=== PATIENT | female | born 1985 | race Caucasian/White ===

== ENCOUNTER 2019-11-13 08:06 | Inpatient (IN) | payer BC ==
[2019-11-13] MEDS ORDERED: Ketorolac Tromethamine 30 MG/ML VIAL ONE (08:12)
[2019-11-13] MEDS ORDERED: Fentanyl 100 MCG/2 ML VIAL ONE ×3 (08:12→14:54)
--- NOTE | 2019-11-13 08:49 | RAD ---
XR Knee Lt 4 View STANDARD: 11/13/2019 8:15 AM CLINICAL INDICATION: Fall with left knee pain COMPARISON: None. FINDINGS: Bones: r there is a comminuted, transverse oriented fracture involving the patella with distraction of the fracture approximately 3 cm. No additional acute fracture is evident. Joints: No joint capsular distention.. Soft Tissue: There is soft tissue swelling surrounding the fracture site.. IMPRESSION: Comminuted, distracted patellar fracture.
--- NOTE | 2019-11-13 09:41 | RAD ---
Exam: Chest one view HISTORY:Preoperative exam. Fractured patella Comparison: None FINDINGS: Cardiac silhouette: Normal Aorta: Unremarkable Pulmonary vessels: Normal Costophrenic angles: Clear LUNGS: No masses or consolidation. Pneumothorax: None Osseous abnormalities: None IMPRESSION: No acute cardiopulmonary process.
[2019-11-13] MEDS ORDERED: Dextrose 5% in Water 1,000 ML IV PRN (09:53)
[2019-11-13] MEDS ORDERED: Dextrose 50% Abboject 50 ML SYRINGE SLOW IVP PRN (09:53)
[2019-11-13] MEDS ORDERED: Ondansetron PF 4 MG/2 ML Vial IVP PRN (09:53)
[2019-11-13] MEDS ORDERED: traMADol HCl 50 MG TAB PO PRN ×2 (09:59)
[2019-11-13] MEDS ORDERED: Cyclobenzaprine 10 MG TAB PO PRN (09:59)
[2019-11-13] MEDS ORDERED: Sodium Chloride 0.9% 1,000 ML IV SCH (10:00)
[2019-11-13 10:01] LABS: #Basophils 0.1 thou/uL (0.0-0.2); #Eosinphils 0.1 thou/uL (0.0-0.7); #Lymphocytes 1.2 thou/uL (1.20-3.40); #Monocytes 0.6 thou/uL (0.11-0.59); #Neutrophils 12.3 thou/uL (1.40-6.50); %Basophils 0.5 % (0.0-1.0); %Eosinophils 0.4 % (0.0-10.0); %Lymphocytes 8.5 % (21.0-51.0); %Monocytes 4.1 % (0.0-10.0); %Neutrophils 86.5 % (42.0-75.0); Hemoglobin 14.8 g/dL (12.0-16.0); Mean Corpuscular HGB CONC 32.9 g/dL (32.0-36.0); Mean Corpuscular Hemoglobin 28.8 pg (27.0-31.0); Mean Corpuscular Volume 87.6 fL (78.0-98.0); Mean Platelet Volume 6.7 fL (7.4-10.4); Platelet Count 432 thou/uL (130-400); RBC Distribution Width 11.8 % (11.5-14.5); Red Blood Cell (RBC) Count 5.14 mill/uL (4.20-5.40); White Blood Cell (WBC) Count 14.2 thou/uL (4.8-10.8)
[2019-11-13 10:09] LABS: BHCG - Serum Negative (NEGATIVE); PTT 27.2 sec (22.9-36.1); Pregs Control Background? CLEAR/WHITE (CLR/WHITE); Pregs Control Bar Appear? YES (CONTROL BAR); Prothrombin Time 13.4 sec (12.0-14.7)
--- NOTE | 2019-11-13 10:14 | CON ---
DATE OF CONSULTATION: 11/13/2019 This is Dede Wisdom PA-C dictating a report for Maynor Montelongo MD. REQUESTING PHYSICIAN: Lincoln Sotelo MD CONSULTING PHYSICIAN: Maynor Montelongo MD REASON FOR CONSULTATION: Left knee patellar fracture. HISTORY OF PRESENT ILLNESS: This is a 34-year-old female, who slipped and fell while running this morning. She states that she slipped on some mud, landing onto her left knee. She presented to our facility, where workup revealed a displaced patellar fracture. We have been consulted for this reason. Currently at bedside, the patient denies any other injuries. She denies any numbness or tingling. States she has never had any knee problems or orthopedic surgeries. PAST MEDICAL HISTORY: Significant for seasonal allergies and anxiety. PAST SURGICAL HISTORY: [place] teeth removal. 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 She does drink socially. Denies any tobacco or illicit drug use. FAMILY HISTORY: Reviewed and noncontributory. REVIEW OF SYSTEMS: Ten-point review of systems is conducted and otherwise negative except for stated above. PHYSICAL EXAMINATION: VITAL SIGNS: Shows current vital signs including blood pressure of 127/76, pulse of 87, respiratory rate of 16, temperature of 99.3, and O2 saturation of 99% on room air. GENERAL: The patient is awake and alert. She is in no apparent distress. She is lying supine on the stretcher in the ER at this time. No family is present. She is cooperative with exam today. HEENT: Head is normocephalic and atraumatic. NECK: Supple. Trachea midline. Breathing is nonlabored. EXTREMITIES: The left lower extremity is noted to have a superficial abrasion over the patella. There is no active bleeding. She is able to wiggle her toes. Negative log roll. She is unable to flex or extend at the knee. Other 3 extremities were evaluated and no acute deformities or injuries are noted. RADIOGRAPHIC IMAGING: Reviewed today including four views of the left knee demonstrates a transverse patellar fracture with comminution of several inferior pieces. There is displacement of the superior fracture portion superiorly. ASSESSMENT: Left patellar fracture with displacement and comminution. PLAN: At this time, case was reviewed with Dr. Montelongo. The patient has been n.p.o. since last night. We will plan for surgical intervention this afternoon in order to restore anatomic alignment and promote function. Risks, benefits, and alternatives were discussed with the patient at length today. She does verbalize understanding and is amenable to the plan of care. She will remain n.p.o. She will be admitted to the Trauma Services. We will plan for likely discharge home tomorrow. All questions have been answered at this time. Job ID: [id number]
[2019-11-13 10:28] LABS: ALT (SGPT) 23 U/L (8-55); AST (SGOT) 23 U/L (5-34); Albumin 4.3 g/dL (3.5-5.0); Alkaline Phosphatase 68 U/L (40-110); Anion Gap 15 mmol/L (10-20); BUN (Urea Nitrogen) 10 mg/dL (7.0-18.7); Bilirubin, Total 0.4 mg/dL (0.2-1.2); Calc. Creatinine Clearance 0 mL/min (70-130); Calcium 9.3 mg/dL (7.8-10.44); Carbon Dioxide 22 mmol/L (22-29); Chloride 107 mmol/L (98-107); Estimated GFR-MDRD 90; Globulin 3.3 g/dL (2.4-3.5); Glucose 106 mg/dL (70-105); Protein, Total 7.6 g/dL (6.0-8.3); Sodium 140 mmol/L (136-145)
[2019-11-13] MEDS ORDERED: Midazolam HCl 2 mg/2 ml Vial ONE (13:48)
[2019-11-13] MEDS ORDERED: Ondansetron PF 4 MG/2 ML Vial ONE (14:49)
[2019-11-13] MEDS ORDERED: Dexamethasone 20 MG/5 ML VIAL ONE (14:49)
[2019-11-13] MEDS ORDERED: PROPOFOL 200 MG/20 ML VIAL ONE (14:49)
[2019-11-13] MEDS ORDERED: Lidocaine 1% PF 5 ML VIAL ONE (14:49)
[2019-11-13] MEDS ORDERED: Bupivacaine HCl 0.5%/Epinephrine 1:200,000/PF 30 ml Vial ONE (14:51)
--- NOTE | 2019-11-13 15:05 | HP ---
Dr. Mcclellan has personally seen and evaluated the patient. HISTORY OF PRESENT ILLNESS: Ms. Nguyễn is a 34-year-old female with a past medical history of pelvic pain; dysmenorrhea, treated with OCPs; and seasonal allergies; coming into the emergency department via EMS after slipping on a puddle this morning approximately 7:30 a.m. and falling onto her left knee. The patient was walking, slipped in mud with her right foot going forward and her left knee going straight down to the concrete. She had immediate severe pain and also noticed her knee to be deformed looking in appearance. The patient denies any audible or felt pop or crack at the time of the fall. She states that after this incident , she was unable to walk or bend that knee. She called the EMS, who then transferred her to [facility] ER. The patient denies any other injuries during this accident and no other pain. REVIEW OF SYSTEMS: GENERAL: The patient denies fevers, chills. HEENT: The patient denies headache, vision changes, or sore throat. NECK: The patient denies neck pain. LUNGS: The patient denies cough or shortness of breath. CARDIAC: The patient denies any chest pain or recent lower extremity edema. ABDOMEN: The patient denies abdominal pain, nausea, vomiting, or diarrhea. MUSCULOSKELETAL: Admits to left knee pain, see HPI. Denies any other joint pain or back pain. SKIN: Denies rash. NEUROLOGIC: Admits to lightheadedness after given some pain medication. PAST MEDICAL HISTORY: Seasonal allergies and dysmenorrhea. MEDICATIONS: 1. Oral contraceptive pills. 2. Chelsey. 3. Zyrtec. PAST SURGICAL HISTORY: [place] teeth extraction in 2011. ALLERGIES: 1. AZITHROMYCIN, CAUSES RASH AND ITCHING. 2. PERCOCET, CAUSES RASH AND ITCHING. 3. PENICILLIN, CAUSES RASH, ITCHING, AND SHORTNESS OF BREATH. 4. SULFA MEDICATIONS CAUSE RASH AND ITCHING. SOCIAL HISTORY: The patient denies any tobacco use or drug use. The patient admits to occasional alcohol consumption socially. FAMILY HISTORY: Maternal grandfather of lung cancer in his 70s, also had congestive heart failure. Maternal and paternal grandmother had breast cancer. PHYSICAL EXAMINATION: VITAL SIGNS: temp: 98.3, HR 112, RR 18, O2 sat 98% on RA, BP 122/81, wt: 83.9 kg GENERAL: In no acute distress. Alert and oriented x3. HEENT: Head; normocephalic, atraumatic. Eyes; PERRLA and extraocular movements intact. NECK: Trachea midline. Full range of motion. LUNGS: Clear to auscultation bilaterally. No wheezing, rales, or rhonchi. No respiratory distress. CARDIAC: Regular rate and rhythm. No murmurs, gallops, or rubs. ABDOMEN: Soft, nontender to palpation in all quadrants. Bowel sounds present. EXTREMITIES: No pedal or lower extremity edema. Pulses 2+ at dorsal pedis bilaterally and radius bilaterally. Neurovascularly intact in all 4 extremities. MUSCULOSKELETAL: Tenderness over left patella. Range of motion in L knee limited due to pain. Special tests to the knee not performed secondary to pain intolerance. Abrasion with ecchymosis present over the anterior aspect of the L knee patella with the effusion. NEUROLOGIC: Cranial nerves 2 through 12 intact. Strength 5/5 in all 4 extremities. No altered sensation in all 4 extremities. Alert and oriented x3. PSYCHIATRIC: Mood appropriate. Memory intact. DIAGNOSTIC STUDIES: Left knee x-ray, comminuted transverse oriented fracture involving the patella with distraction of the fracture, approximately 3 cm. No additional acute fracture is evident. No joint capsular distention. There is soft tissue swelling surrounding the fracture site. Chest x-ray, no acute cardiopulmonary process. LABORATORY DATA: CBC; white blood cell count 14.2, hemoglobin 14.8, hematocrit 45.1, platelets 432, neutrophil percent 86.5. Coag studies normal. PT 13.4, INR 1.0, aPTT 27.2. Chemistry within normal limits. Sodium 140, potassium 4.0, creatinine 0.75, AST 23, and ALT 23. test negative. ASSESSMENT: 1. Ground level fall. 2. Comminuted distracted patellar fracture on the left knee. 3. Leukocytosis. PLAN: Orthopedic Surgery, Dr. Montelongo, has been consulted who plans to take the patient for surgical intervention this afternoon. The patient's last food was last night for dinner; however, she had 2 vitamin gummies with a small amount of water to swallow Zyrtec this morning. No other p.o. intake. We will leave n.p.o. for this surgery. Physical Therapy/Occupational Therapy consulted for therapy after surgery. Planning probable discharge home tomorrow if the patient's pain is tolerable. Pain management, Tylenol 1000 mg p.o. q.6 hours, cyclobenzaprine 10 mg p.o. t.i.d. p.r.n., ibuprofen 600 mg p.o. q.8 hours, and tramadol 100 mg p.o. q.6 hours p.r.n. or tramadol 50 mg p.o. q.6 hours p.r.n. for pain. Resume regular diet after surgery, advance as tolerated. VTE prophylaxis, SCDs. Diet, n.p.o. until after surgery, resume regular diet post-surgery, advance as tolerated. Code status, full code. Pt seen and evaluated by Dr. Mcclellan, who is in agreement with above stated plan of care. Job ID: [id number] MTDD
[2019-11-13] MEDS ORDERED: Meperidine HCl/PF 25 MG/ML VIAL ONE (17:03)
[2019-11-13 18:39] VITALS: BMI 30.7
[2019-11-13] MEDS: Ibuprofen 600 MG TAB PO SCH ×2 (19:11→21:46)
[2019-11-13] MEDS: Acetaminophen 500 MG TAB PO SCH ×2 (19:11→21:46)
[2019-11-13] MEDS: Senokot S 8.6-50 MG TAB PO SCH (20:03)
--- NOTE | 2019-11-13 20:14 | RAD ---
XR Knee Lt 2 View History: Trauma Comparison: Radiograph same day Findings: Satisfactory appearance cerclage fixation and percutaneous pin placement through the patell ar fracture. Impression: Satisfactory postoperative appearance.
[2019-11-13] MEDS ORDERED: Famotidine/PF 20 mg/2ml Vial SLOW IVP SCH (21:00)
[2019-11-13] MEDS: CEFAZOLIN 2 GM in Premix Bag 1 BAG IVPB SCH (21:45)
--- NOTE | 2019-11-13 22:46 | OP ---
DATE OF PROCEDURE: 11/13/2019 PREOPERATIVE DIAGNOSIS: Grade 1 open left comminuted patella fracture. POSTOPERATIVE DIAGNOSIS: Grade 1 open left comminuted patella fracture. PROCEDURES PERFORMED: 1. Open reduction and internal fixation of left patella. 2. Irrigation debridement of left knee. ANESTHESIA: General. SPRAY MACHINE LOADER: Dede Wisdom PA-C TOURNIQUET TIME: Approximately 65 minutes at 300 mmHg. IMPLANTS: K-wires x2 as well as tension band wire. COMPLICATIONS: None. DRAINS: None. SPECIMEN: None. OUTCOME: Satisfactory. INDICATIONS FOR PROCEDURE: Patient is a 34-year-old lady, who is status post fall, landing on her left knee, sustaining a comminuted inferior pole patella fracture with wide diastasis of the superior and inferior poles as well as a small puncture wound at the anterior knee. After discussion with the patient including risks and benefits, we decided to proceed with irrigation debridement as well as open reduction and internal fixation of this fracture. Informed consent has been obtained. I believe all questions have been answered. DESCRIPTION OF PROCEDURE: Patient was brought to the operating room and a time-out performed followed by induction of general anesthesia. Patient was given 2 g of Ancef preoperatively. Following the induction of general anesthesia, she was positioned supine on the OR table and a sterile prep and drape was performed in the left lower extremity. The limb was then exsanguinated with Esmarch bandage, tourniquet inflated to 300 mmHg. A midline anterior knee incision was made. The traumatic puncture wound was explored. There was found to be no gross contamination. After the midline anterior knee incision was performed, dissection was carried down to the underlying quadriceps mechanism. There was found to be a wide diastasis of the main fracture fragments with an intact superior pole and a comminuted inferior pole. Laterally, there were some very small fragments of bone that were really void of any soft tissue attachment and as such, these were removed. The medial 2/3 of the inferior pole really was composed of two or three fragments that were still in good alignment. As such, it was opted to fix this inferior pole back to the superior pole. The wound was thoroughly irrigated with bulb syringe as well as using a Pulsavac with 3 L of normal saline, irrigated through the wound. Periosteal tissue that was interposed at the fracture site was resected back and then the fracture reduced and held in place with a bone tenaculum. Next, two K-wires were passed from the inferior pole up through the superior pole. These were checked under C-arm guidance. Once appropriately positioned, a tension band construct was wrapped around these K-wires, getting excellent compression across the fracture and a smooth articular surface. The K-wires were then cut shorter to minimize irritation subcutaneously. Next, the lateral third portion of the patella that had been excised was treated with repair of the small portion of patellar tendon to the superior pole directly. The retinaculum medially and laterally was reapproximated with 0 Vicryl in interrupted fashion followed by 2-0 Vicryl subcutaneously and erlin for the skin. Xeroform gauze, Webril, and a knee immobilizer were applied to the knee. The tourniquet was let down and patient transferred to recovery room in stable condition. There were no complications. She tolerated the procedure well. Job ID: [id number]
[2019-11-14] MEDS: Acetaminophen 500 MG TAB PO SCH ×3 (00:28→14:42)
--- NOTE | 2019-11-14 02:17 | PRG ---
DATE OF SERVICE: 11/13/2019 SUBJECTIVE: The patient is postop day #0, status post open reduction and internal fixation of left patella and irrigation and debridement of the left knee. The patient is currently resting comfortably. The patient's pain has been well controlled postop. The patient's nurse reports some mild anxiety earlier after returning from PACU. OBJECTIVE: VITAL SIGNS: Mildly tachycardic, afebrile. GENERAL: A well-appearing young female, resting comfortably. IMPRESSION: 1. Status post ground level fall. 2. Grade 1 open left comminuted patellar fracture, postop day #0, open reduction and internal fixation and irrigation and debridement. 3. Leukocytosis. PLAN: Continue supportive care and pain regimen. Physical and occupational therapy. Regular diet as tolerated. Job ID: [id number] [facility]
[2019-11-14] MEDS: CEFAZOLIN 2 GM in Premix Bag 1 BAG IVPB SCH (05:02)
[2019-11-14] MEDS: Ibuprofen 600 MG TAB PO SCH ×2 (05:02→14:42)
[2019-11-14] MEDS ORDERED: Enoxaparin Sodium 40 MG/0.4 ML SYRINGE SC SCH (09:00)
[2019-11-14] MEDS ORDERED: Loratadine 10 MG TAB PO SCH (09:00)
[2019-11-14] MEDS ORDERED: Polyethylene Glycol 3350 17 GM Packet PO SCH (09:00)
[2019-11-14] MEDS ORDERED: Non-Formulary Item 1 EACH (Fexofenadine Hcl [Allegra Allergy] 60 MG) PO SCH (09:00)
[2019-11-14] MEDS: Senokot S 8.6-50 MG TAB PO SCH (09:41)
[2019-11-14 15:34] VITALS: BP 116/74; TEMP 98.8
--- NOTE | 2019-11-15 07:39 | DIS ---
DATE OF ADMISSION: 11/13/2019 DATE OF DISCHARGE: 11/14/2019 ADMISSION DIAGNOSES: Ground level fall, left patellar fracture. DISCHARGE DIAGNOSES: Ground level fall, left patellar fracture. CONSULTING PHYSICIAN: Dr. Montelongo of Orthopedic Surgery. PROCEDURES: The patient went to the OR on November 13, 2019, and had a ORIF of the left patella, as well as I and D of the left knee. HOSPITAL COURSE: The patient is a 34-year-old female, who presented to the emergency department after a mechanical fall while jogging. The patient reported slipping and falling onto her left knee. She was found to have a left patellar fracture and was admitted to the hospital and went to the OR with Dr. Montelongo for a ORIF and washout of that knee. Postoperatively, she worked with Physical and Occupational Therapy, who recommended discharge with a walker. She was also in a knee immobilizer. At the time of discharge, the patient's pain was well controlled. She was tolerating a regular diet, voiding without difficulties, and getting around safely with a walker. DISCHARGE DISPOSITION: Home. DISCHARGE CONDITION: Satisfactory. PHYSICAL EXAMINATION: VITAL SIGNS: Temperature 97.9, pulse 100, respirations 16, oxygen saturation 100% on room air, blood pressure 122/76. GENERAL: Well-appearing young female, sitting up in bed with no signs of acute distress. PULMONARY: Equal chest rise and fall. Clear breath sounds bilaterally. No signs of acute respiratory distress. CARDIAC: Regular rate and rhythm. GASTROINTESTINAL: Abdomen is soft, nontender, nondistended. EXTREMITIES: 2+ pulses in all extremities. Gross motor and sensation intact. Left lower extremity with knee immobilizer, that is in place. Dressing beneath it is clean, dry, and intact. NEURO: GCS is 15. DISCHARGE INSTRUCTIONS: The patient was discharged home with activity as tolerated, 25% weightbearing to the left lower extremity. Regular diet. Incentive spirometry and a walker. DISCHARGE MEDICATIONS: Include, 1. Tylenol. 2. Zyrtec. 3. Flexeril. 4. Lovenox for 14 days. 5. Ibuprofen. 6. Prilosec. 7. MiraLAX. 8. Tramadol. FOLLOWUP APPOINTMENTS: The patient is to follow up with Dr. Montelongo. No followup is needed with Trauma Clinic. This is a summary of the patient's hospitalization. For full details, please see her medical record in its entirety. The [place] Prescription Monitoring Program was accessed and tramadol prescription was deemed appropriate for pain control at the time of discharge. This patient was seen and evaluated by myself and Dr. Mcclellan at the day of discharge. Job ID: [id number] MTDD
== END 2019-11-14 15:29 | disposition home or self-care (01) | DRG 517 ==
LOC: ERS 08:06 → SDC 10:28 → SURG A 18:09
PROVIDERS: ADMIT Surgery; ATTEND Surgery
PROC: 0QSF04Z Reposition Left Patella with Internal Fixation Device, Open Approach (ICD-10-PCS; principal; 2019-11-13)
DX: S82.042B Displaced comminuted fracture of left patella, initial encounter for open fracture type I or II (principal); F41.9 Anxiety disorder, unspecified; J30.2 Other seasonal allergic rhinitis; D72.829 Elevated white blood cell count, unspecified; W01.0XXA Fall on same level from slipping, tripping and stumbling without subsequent striking against object, initial encounter; Z79.899 Other long term (current) drug therapy; Z88.1 Allergy status to other antibiotic agents; Z88.0 Allergy status to penicillin; Z88.2 Allergy status to sulfonamides; Z88.8 Allergy status to other drugs, medicaments and biological substances
CPT/HCPCS: 36415; 71045; 76000; 80053; 84703; 85025; 85610; 85730; 93005; 96374; 96375; G0390; J0670; J0690; J1100; J1650; J1885; J2001; J2175; J2250; J2405; J2704; J3010; S0028

== ENCOUNTER 2019-12-03 11:49 | Observation (INO) | payer BC ==
[2019-12-03] MEDS ORDERED: PROPOFOL 200 MG/20 ML VIAL ONE (12:26)
[2019-12-03] MEDS ORDERED: Ondansetron PF 4 MG/2 ML Vial ONE (12:26)
[2019-12-03] MEDS ORDERED: Lidocaine 1% PF 5 ML VIAL ONE (12:26)
[2019-12-03] MEDS ORDERED: Dexamethasone 20 MG/5 ML VIAL ONE (12:26)
[2019-12-03] MEDS ORDERED: Fentanyl 100 MCG/2 ML VIAL ONE ×5 (14:34→16:44)
[2019-12-03] MEDS ORDERED: Levofloxacin 500 mg/D5W 100 ml Premix Bag ONE (14:40)
[2019-12-03] MEDS ORDERED: Clindamycin/D5W 900 mg/50 ml Premix Bag ONE (14:40)
[2019-12-03] MEDS ORDERED: traMADol HCl 50 MG TAB PO PRN (16:02)
[2019-12-03] MEDS ORDERED: Milk Of Magnesia 30 ML UDCUP PO PRN (16:02)
[2019-12-03] MEDS ORDERED: Fentanyl 100 MCG/2 ML VIAL SLOW IVP PRN (16:02)
[2019-12-03] MEDS ORDERED: Ondansetron PF 4 MG/2 ML Vial IV PRN (16:02)
[2019-12-03] MEDS ORDERED: Cyclobenzaprine 10 MG TAB PO PRN (16:05)
[2019-12-03] MEDS ORDERED: Communication Order-Pharmacy FS SCH (16:15)
[2019-12-03] MEDS ORDERED: HYDROmorphone 2 MG/ML VIAL SLOW IVP PRN (16:20)
[2019-12-03] MEDS ORDERED: Promethazine HCl 25 MG/ML VIAL SLOW IVP PRN (16:20)
[2019-12-03] MEDS ORDERED: Promethazine HCl 25 MG/ML VIAL IM PRN (16:20)
[2019-12-03] MEDS ORDERED: Ondansetron HCl/PF 4 MG/2 ML Vial IVP PRN (16:20)
[2019-12-03] MEDS: HYDROcodone/Acetaminophen 10/325 mg Tablet PO PRN (17:52)
--- NOTE | 2019-12-03 18:13 | OP ---
DATE OF PROCEDURE: 12/03/2019 OPERATION PERFORMED: Irrigation and debridement of left knee wound. PREOPERATIVE DIAGNOSIS: Left knee wound drainage with history of patella fracture. POSTOPERATIVE DIAGNOSIS: Left knee wound drainage with history of patella fracture. COMPLICATIONS: None. ESTIMATED BLOOD LOSS: 150 mL. IMPLANTS: None. INDICATIONS: Ms. Nguyễn is a 34-year-old female who fractured her patella approximately 3 weeks ago. She was treated with open reduction and fixation. Unfortunately, she has developed persistent wound drainage and has failed to improve with outpatient antibiotics. She has been indicated now for irrigation and debridement of the wound to hopefully eradicate infection and promote healing. Risks have been reviewed in detail. She has elected to proceed with the operation. DESCRIPTION OF PROCEDURE: Ms. Nguyễn was identified in the preoperative holding area. Her correct extremity was marked. She was carried to the operating room. She was positioned supine. General anesthesia was induced. A multidisciplinary time-out was performed. The left lower extremity was prepped and draped in sterile fashion. We began the procedure by excising the patient's wound proximally where she had drainage. We then extended the wound distally. We worked deeply down to the subcutaneous tissue and prepatellar bursal space. There was a large amount of serous and somewhat cloudy fluid. This was cultured. We thoroughly irrigated with copious lavage using Betadine and lavage. We then used a rongeur as well as a curette to debride the underlying soft tissues. We removed any previously placed suture. Again, we trimmed the skin edges. We performed a final irrigation. We then closed with a 2-0 PDS suture followed by 3-0 nylon for the skin. A sterile dressing was applied. The patient was taken to the recovery room in good condition. Job ID: [id number]
[2019-12-03 18:24] VITALS: BMI 30.7
[2019-12-03] MEDS ORDERED: Zolpidem Tartrate 5 MG TAB PO SCH (21:00)
[2019-12-03] MEDS: Ibuprofen 600 MG TAB PO SCH (21:03)
[2019-12-03] MEDS: Aspirin 81 mg Enteric Coated Tablet PO SCH (21:04)
[2019-12-03] MEDS: Clindamycin/D5W 900 MG in Premix Bag 1 BAG IVPB SCH (23:03)
[2019-12-04] MEDS: HYDROcodone/Acetaminophen 10/325 mg Tablet PO PRN ×2 (03:05→11:15)
[2019-12-04] MEDS: Clindamycin/D5W 900 MG in Premix Bag 1 BAG IVPB SCH ×2 (06:05→15:34)
[2019-12-04] MEDS: Ibuprofen 600 MG TAB PO SCH ×2 (06:06→14:08)
[2019-12-04 06:10] LABS: #Lymphocytes 1.2 thou/uL (1.20-3.40); #Monocytes 0.7 thou/uL (0.11-0.59); #Neutrophils 11.8 thou/uL (1.40-6.50); %Basophils 0.2 % (0.0-1.0); %Eosinophils 0.2 % (0.0-10.0); %Lymphocytes 8.4 % (21.0-51.0); %Monocytes 5.4 % (0.0-10.0); %Neutrophils 85.8 % (42.0-75.0); Mean Corpuscular HGB CONC 30.8 g/dL (32.0-36.0); Mean Corpuscular Volume 87.5 fL (78.0-98.0); Mean Platelet Volume 5.7 fL (7.4-10.4); Platelet Count 1008 thou/uL (130-400); RBC Distribution Width 12.2 % (11.5-14.5); Red Blood Cell (RBC) Count 3.71 mill/uL (4.20-5.40); White Blood Cell (WBC) Count 13.7 thou/uL (4.8-10.8)
[2019-12-04 07:44] LABS: Hemoglobin 10.7 g/dL (12.0-16.0); Platelet Count 1030 thou/uL (130-400)
[2019-12-04] MEDS: Aspirin 81 mg Enteric Coated Tablet PO SCH (08:34)
[2019-12-04] MEDS ORDERED: Loratadine 10 MG TAB PO SCH (09:00)
[2019-12-04] MEDS ORDERED: Non-Formulary Item 1 EACH (Fexofenadine Hcl [Allegra Allergy] 60 MG) PO SCH (09:00)
[2019-12-04 15:00] VITALS: BP 123/72; TEMP 98.7
--- NOTE | 2019-12-05 07:09 | DIS ---
DATE OF ADMISSION: 12/03/2019 DATE OF DISCHARGE: 12/04/2019 HOSPITAL COURSE: Ms. Nguyễn is a 34-year-old female, who was brought in the hospital for wound infection and dehiscence. She underwent irrigation and debridement of her knee wound in the operating room with closure. Cultures were taken and she was treated with intravenous antibiotics. She did well during and after surgery. On postop day 1, a CBC was drawn, which showed an elevated platelet count at just over one million. This was repeated and confirmed this finding. We discussed the patient with the Hematology Service and recommended close followup for repeat platelet testing. The patient had been on Lovenox and this has been stopped as well. She was placed on aspirin. She was tolerating an oral diet and pain was controlled. DISCHARGE PLAN: The patient will follow up in the orthopedic clinic in 10 to 14 days. She will follow up for a CBC in 3 to 4 days to check her platelet count. Job ID: [id number]
== END 2019-12-04 16:08 | disposition home or self-care (01) ==
LOC: SDC 11:49 → SURG A 16:06
PROVIDERS: ADMIT Orthopaedic Surgery; ATTEND Orthopaedic Surgery
PROC: 0JBP0ZZ Excision of Left Lower Leg Subcutaneous Tissue and Fascia, Open Approach (ICD-10-PCS; principal; 2019-12-03)
DX: T81.31XA Disruption of external operation (surgical) wound, not elsewhere classified, initial encounter (principal); Z79.82 Long term (current) use of aspirin; Z79.899 Other long term (current) drug therapy; Z88.0 Allergy status to penicillin; Z88.1 Allergy status to other antibiotic agents; Z88.2 Allergy status to sulfonamides; Z88.5 Allergy status to narcotic agent
CPT/HCPCS: 36415; 85025; 85060; 87070; 87205; 96365; 96366; 96375; G0378; J1100; J1956; J2405; J2704; J3010; J3490